=== PATIENT | male | born 1950 | race Caucasian/White ===

== ENCOUNTER 2021-10-23 21:00 | Inpatient (IN) | payer MEDICARE, OTHER ==
[~2021-10-23] VITALS: Ht 167.6 cm; Wt 94.2 kg
[2021-10-23] MEDS ORDERED: ALBUTEROL SULFATE 5 MG/ML 20 ML NEB SOLN [BULK] NEB ONE ×2 (21:15)
[2021-10-23] MEDS ORDERED: IPRATROPIUM BROMIDE 0.5 MG/2.5 ML NEB SOLUTION NEB ONE (21:15)
[2021-10-23 21:27] LABS: COVID AG,FIA SOURCE NASAL SWAB
[2021-10-23 21:35] LABS: BASOPHILS % (AUTO) 0.3 % (0.0-2.0); EOSINOPHILS % (AUTO) 0.5 % (1.0-6.0); HEMATOCRIT 46.5 % (41-53); HEMOGLOBIN 14.3 g/dL (13.5-17.5); LYMPHOCYTES # (AUTO) 0.9 K/uL (1.0-4.8); LYMPHOCYTES % (AUTO) 9.3 % (22.0-44.0); MEAN CORPUSCULAR HGB CONC 30.7 G/dL (31.0-37.0); MEAN CORPUSCULAR VOLUME 82 fL (80-100); MONOCYTES # (AUTO) 0.7 K/uL (0.1-1.0); MONOCYTES % (AUTO) 7.2 % (2.0-9.0); NEUTROPHILS # (AUTO) 8.2 K/uL (1.8-7.7); NEUTROPHILS % (AUTO) 82.7 % (40.0-70.0); PLATELET COUNT (AUTO) 223 K/uL (150-450); RED CELL DISTRIBUTION WIDTH 17.6 % (11.5-14.5)
[2021-10-23 21:47] LABS: INR 1.1 (0.9-1.1); PROTHROMBIN TIME 11.9 SEC (9.4-11.6)
[2021-10-23] MEDS ORDERED: ETOMIDATE 2 MG/ML 10 ML VIAL ONE (21:49)
[2021-10-23 21:50] LABS: ALBUMIN 3.9 g/dL (3.4-5.0); BILIRUBIN,TOTAL 1.3 mg/dL (0.1-1.0); CALCIUM, TOTAL 9.3 mg/dL (8.8-10.5); CREATININE 1.21 mg/dL (0.60-1.30); POTASSIUM 4.4 mmol/L (3.5-5.1)
[2021-10-23] MEDS ORDERED: ROCURONIUM BROMIDE 10 MG/ML 5 ML VIAL ONE (21:50)
[2021-10-23] MEDS ORDERED: ROCURONIUM BROMIDE 10 MG/ML 5 ML VIAL IVP ONE (22:00)
[2021-10-23] MEDS ORDERED: ETOMIDATE 2 MG/ML 10 ML VIAL IVP ONE (22:00)
[2021-10-23] MEDS ORDERED: FUROSEMIDE 40 MG/4 ML VIAL IVP ONE (22:15)
[2021-10-23 22:20] LABS: ABG BASE EXCESS 11.1 mmol/L (-2.0-3.0); ABG CARBOXYHEMOGLOBIN 1.4 % (0.0-1.5); ABG HCO3 31.8 mmol/L (22.0-26.0); ABG METHEMOGLOBIN 0.2 % (0.0-1.5); ABG OXYGEN CONTENT 17.5 mL/dL (15.0-23.0); ABG OXYGEN SATURATION 89.9 % (95.0-98.0); ABG OXYHEMOGLOBIN 88.5 % (94.0-100.0); ABG PH 7.332 (7.35-7.450); ABG TOTAL HEMOGLOBIN 14.1 G/dL (12.0-18.0); PO2, ARTERIAL BG 53.5 mmHg (75.0-83.0); SOURCE, BLOOD GAS ARTERIAL; TEMPERATURE, FAHRENHEIT, BG 96.8 FAHREN (96.0-98.6)
[2021-10-23 22:21] LABS: ABG PCO2 71 mmHg (35-45); O2 DEVICE,BLOOD GAS VENTILATOR (ROOM AIR); SITE, BLOOD GAS RT RADIAL; VT, ABG 450 ml
[2021-10-23 22:22] LABS: PEEP,BG 5 cm H2O
[2021-10-23 22:37] LABS: APPEARANCE,URINE CLEAR (CLEAR); BILIRUBIN,URINE NEGATIVE (NEGATIVE); GLUCOSE, URINE (UA) TRACE mg/dL (NEGATIVE); KETONES,URINE NEGATIVE (NEGATIVE); LEUKOCYTE ESTERASE ,URINE NEGATIVE (NEGATIVE); NITRATE,URINE NEGATIVE (NEGATIVE); OCCULT BLOOD,URINE MODERATE (NEGATIVE); PROTEIN,URINE 300-600,SEE CONFIRM mg/dL (NEGATIVE); SPECIFIC GRAVITIY, URINE 1.027 (1.003-1.030)
[2021-10-23] MEDS: FentaNYL CIT 1000MCG/0.9% NACL 100 ML IV PRN (22:43)
[2021-10-23 22:47] LABS: BACTERIA,URINE Rare /HPF (None Seen); RBC,URINE 26-50 /HPF (0-2); SQUAMOUS EPITHELIAL CELL,UR Rare /LPF (None Seen); WBC,URINE 0-2 /HPF (0-5)
[2021-10-23 22:48] LABS: SULFOSALICYLIC ACID,URINE 4+ (Negative)
[2021-10-23] MEDS: PROPOFOL 1000 MG/ISO-OSM 100 ML IV PRN (23:35)
[2021-10-23] MEDS ORDERED: APIX5TAB PO (23:48)
[2021-10-23] MEDS ORDERED: ATOR40TA28 PO (23:48)
[2021-10-23] MEDS ORDERED: LOSA-381 PO (23:48)
[2021-10-24 00:31] LABS: ABG BASE EXCESS 15.7 mmol/L (-2.0-3.0); ABG CARBOXYHEMOGLOBIN 1.1 % (0.0-1.5); ABG OXYGEN CONTENT 16.7 mL/dL (15.0-23.0); ABG OXYGEN SATURATION 87.3 % (95.0-98.0); ABG OXYHEMOGLOBIN 86.3 % (94.0-100.0); ABG PCO2 53 mmHg (35-45); ABG PH 7.484 (7.35-7.450); ABG TOTAL HEMOGLOBIN 13.8 G/dL (12.0-18.0); PO2, ARTERIAL BG 46.1 mmHg (75.0-83.0); SOURCE, BLOOD GAS ARTERIAL; TEMPERATURE, FAHRENHEIT, BG 98.6 FAHREN (96.0-98.6)
[2021-10-24 00:32] LABS: O2 DEVICE,BLOOD GAS VENTILATOR (ROOM AIR); PEEP,BG 5 cm H2O; SITE, BLOOD GAS RT RADIAL; VT, ABG 450 ml
[2021-10-24] MEDS ORDERED: ACETAMINOPHEN 650 MG RECTAL SUPPOSITORY PR ONE (01:15)
[2021-10-24] MEDS ORDERED: PNEUMOCOCCAL VACCINE POLYVALENT 0.5 ML VIAL [PPSV23] IM. ONE (03:15)
[2021-10-24 04:00] VITALS: BP 113/72
[2021-10-24] MEDS: FentaNYL CIT 1000MCG/0.9% NACL 100 ML IV PRN ×3 (05:00→18:28)
[2021-10-24 05:35] LABS: BASOPHILS % (AUTO) 0.7 % (0.0-2.0); EOSINOPHILS % (AUTO) 0.3 % (1.0-6.0); HEMATOCRIT 40.4 % (41-53); HEMOGLOBIN 12.7 g/dL (13.5-17.5); LYMPHOCYTES # (AUTO) 1.6 K/uL (1.0-4.8); LYMPHOCYTES % (AUTO) 19.7 % (22.0-44.0); MEAN CORPUSCULAR HGB CONC 31.4 G/dL (31.0-37.0); MEAN CORPUSCULAR VOLUME 80 fL (80-100); MONOCYTES % (AUTO) 12.6 % (2.0-9.0); NEUTROPHILS # (AUTO) 5.5 K/uL (1.8-7.7); NEUTROPHILS % (AUTO) 66.7 % (40.0-70.0); PLATELET COUNT (AUTO) 162 K/uL (150-450); RED BLOOD CELL COUNT(AUTO) 5.07 MIL/uL (4.50-5.90)
[2021-10-24 05:45] LABS: CALCIUM, TOTAL 8.9 mg/dL (8.8-10.5); CREATININE 1.4 mg/dL (0.60-1.30); POTASSIUM 3.5 mmol/L (3.5-5.1)
[2021-10-24 08:00] VITALS: BP 115/78
[2021-10-24] MEDS: ETHYL ALCOHOL 62% ANTISEPTIC NASAL SANITIZER 0.6 ML AMPUL NASAL SCH ×2 (08:35→19:59)
[2021-10-24] MEDS ORDERED: ETHYL ALCOHOL 62% ANTISEPTIC NASAL SANITIZER 0.6 ML AMPUL NASAL SCH (09:00)
[2021-10-24 09:23] LABS: ABG BASE EXCESS 11.7 mmol/L (-2.0-3.0); ABG CARBOXYHEMOGLOBIN 0.9 % (0.0-1.5); ABG HCO3 34.9 mmol/L (22.0-26.0); ABG METHEMOGLOBIN 0.3 % (0.0-1.5); ABG OXYGEN CONTENT 16.9 mL/dL (15.0-23.0); ABG OXYGEN SATURATION 90.8 % (95.0-98.0); ABG OXYHEMOGLOBIN 89.7 % (94.0-100.0); ABG PCO2 36 mmHg (35-45); ABG TOTAL HEMOGLOBIN 13.4 G/dL (12.0-18.0); PO2, ARTERIAL BG 51.8 mmHg (75.0-83.0); SOURCE, BLOOD GAS ARTERIAL; TEMPERATURE, FAHRENHEIT, BG 100.2 FAHREN (96.0-98.6)
[2021-10-24 09:25] LABS: ABG PH 7.591 (7.35-7.450); SITE, BLOOD GAS RT RADIAL
[2021-10-24 09:26] LABS: O2 DEVICE,BLOOD GAS VENTILATOR (ROOM AIR); PEEP,BG 8 cm H2O; VT, ABG 450 ml
[2021-10-24] MEDS: ALBUTEROL SULFATE 2.5 MG/0.5 ML NEB SOLUTION NEB SCH ×4 (10:10→22:38)
[2021-10-24] MEDS: IPRATROPIUM BROMIDE 0.5 MG/2.5 ML NEB SOLUTION NEB SCH ×4 (10:10→22:38)
[2021-10-24] MEDS ORDERED: DEXMEDETOMIDINE HCL 400 MCG in SODIUM CHLORIDE 0.9% 96 ML IV PRN (11:15)
[2021-10-24 12:00] VITALS: BP 84/51
[2021-10-24] MEDS: ACETAMINOPHEN 325 MG TABLET PO PRN (12:13)
[2021-10-24] MEDS ORDERED: NOREPINEPHRINE 8 MG/D5%-WATER 250 ML IV ONE (12:40)
[2021-10-24] MEDS ORDERED: NOREPINEPHRINE 8 MG/D5%-WATER 250 ML IV PRN ×2 (13:30→13:45)
[2021-10-24] MEDS: PROPOFOL 1000 MG/ISO-OSM 100 ML IV PRN (13:37)
[2021-10-24] MEDS ORDERED: VANCOMYCIN HCL 1.5 GM in DEXTROSE 5%-WATER 250 ML IV ONE (14:00)
[2021-10-24] MEDS ORDERED: SODIUM CHLORIDE 0.9% 250 ML IV ONE (15:21)
[2021-10-24] MEDS: PIPERACILLIN/TAZO 3.375 GM/D5W 50 ML IV SCH ×2 (15:27→20:00)
[2021-10-24 16:00] VITALS: BP 100/50
[2021-10-24] MEDS ORDERED: APIXABAN 5 MG TABLET PO ONE (18:00)
[2021-10-24 20:00] VITALS: BP 107/65
[2021-10-24] MEDS ORDERED: DIGOXIN 250 MCG/ML 2 ML AMP IVP ONE (20:30)
[2021-10-24] MEDS: BUDESONIDE 0.25 MG/2 ML NEB SOLUTION NEB SCH (20:51)
[2021-10-25] VITALS: BP 110/66
[2021-10-25] MEDS: PROPOFOL 1000 MG/ISO-OSM 100 ML IV PRN ×3 (01:46→22:31)
[2021-10-25] MEDS: IPRATROPIUM BROMIDE 0.5 MG/2.5 ML NEB SOLUTION NEB SCH ×6 (03:12→22:38)
[2021-10-25] MEDS: PIPERACILLIN/TAZO 3.375 GM/D5W 50 ML IV SCH ×4 (03:24→20:12)
[2021-10-25 04:00] VITALS: BP 127/63
[2021-10-25 05:15] LABS: CALCIUM, TOTAL 8.2 mg/dL (8.8-10.5); CREATININE 1.72 mg/dL (0.60-1.30); POTASSIUM 3.3 mmol/L (3.5-5.1)
[2021-10-25] MEDS: ACETAMINOPHEN 325 MG TABLET PO PRN (06:12)
[2021-10-25] MEDS: ALBUTEROL SULFATE 2.5 MG/0.5 ML NEB SOLUTION NEB SCH (07:00)
[2021-10-25 08:00] VITALS: BP 104/65
[2021-10-25] MEDS ORDERED: VANCOMYCIN HCL 1 GM/D5% WATER 200 ML IV SCH (08:00)
[2021-10-25] MEDS ORDERED: VANCOMYCIN HCL 1.5 GM in DEXTROSE 5%-WATER 250 ML IV SCH (08:00)
[2021-10-25] MEDS ORDERED: POTASSIUM CHLORIDE 10% 40 MEQ/30 ML LIQUID UDCUP NG ONE (08:45)
[2021-10-25] MEDS ORDERED: DIGOXIN 250 MCG/ML 2 ML AMP IVP ONE (09:00)
[2021-10-25] MEDS: FUROSEMIDE 40 MG/4 ML VIAL IVP SCH (09:02)
[2021-10-25 09:03] LABS: THYROID STIMULATING HORMONE 3.4 uIU/mL (0.36-3.74)
[2021-10-25] MEDS: ETHYL ALCOHOL 62% ANTISEPTIC NASAL SANITIZER 0.6 ML AMPUL NASAL SCH ×2 (09:03→20:12)
[2021-10-25] MEDS: APIXABAN 5 MG TABLET NG SCH ×2 (09:17→20:12)
[2021-10-25] MEDS: DILTIAZEM HCL 30 MG TABLET NG SCH ×4 (09:17→23:52)
[2021-10-25] MEDS: BUDESONIDE 0.25 MG/2 ML NEB SOLUTION NEB SCH ×2 (09:39→19:35)
[2021-10-25 12:00] VITALS: BP 116/60
[2021-10-25] MEDS: LEVALBUTEROL HCL 0.63 MG/3 ML NEB SOLUTION NEB SCH ×4 (12:48→22:38)
[2021-10-25] MEDS: FentaNYL CIT 1000MCG/0.9% NACL 100 ML IV PRN (14:01)
[2021-10-25 16:00] VITALS: BP 118/60
[2021-10-25 20:00] VITALS: BP 104/85
[2021-10-26] VITALS: BP 119/74
[2021-10-26] MEDS: PIPERACILLIN/TAZO 3.375 GM/D5W 50 ML IV SCH ×4 (02:08→21:12)
[2021-10-26] MEDS: LEVALBUTEROL HCL 0.63 MG/3 ML NEB SOLUTION NEB SCH ×6 (03:02→22:23)
[2021-10-26] MEDS: IPRATROPIUM BROMIDE 0.5 MG/2.5 ML NEB SOLUTION NEB SCH ×6 (03:02→22:23)
[2021-10-26 04:00] VITALS: BP 126/67
[2021-10-26] MEDS: DILTIAZEM HCL 30 MG TABLET NG SCH ×4 (05:48→23:33)
[2021-10-26 06:21] LABS: GLUCOSE,POINT OF CARE 94 MG/DL (70-110)
[2021-10-26] MEDS: PROPOFOL 1000 MG/ISO-OSM 100 ML IV PRN ×2 (06:22→08:18)
[2021-10-26 06:30] LABS: CALCIUM, TOTAL 8.1 mg/dL (8.8-10.5); CREATININE 1.55 mg/dL (0.60-1.30); DIGOXIN 0.4 ng/mL (0.90-2.00); POTASSIUM 3.1 mmol/L (3.5-5.1)
[2021-10-26 08:00] VITALS: BP 97/66
[2021-10-26] MEDS: ETHYL ALCOHOL 62% ANTISEPTIC NASAL SANITIZER 0.6 ML AMPUL NASAL SCH ×2 (08:17→21:13)
[2021-10-26] MEDS: BUDESONIDE 0.25 MG/2 ML NEB SOLUTION NEB SCH ×2 (08:17→19:04)
[2021-10-26] MEDS: APIXABAN 5 MG TABLET NG SCH ×3 (08:17→21:21)
[2021-10-26] MEDS: FUROSEMIDE 40 MG/4 ML VIAL IVP SCH (08:17)
[2021-10-26] MEDS: VANCOMYCIN HCL 1.25 GM in DEXTROSE 5%-WATER 250 ML IV SCH (08:18)
[2021-10-26] MEDS ORDERED: SODIUM CHLORIDE 0.9% 250 ML IV ONE (09:25)
[2021-10-26] MEDS: POTASSIUM CHL 10 MEQ/WATER 50 ML IV SCH ×4 (10:55→14:15)
[2021-10-26 12:00] VITALS: BP 100/52
[2021-10-26 12:41] LABS: GLUCOSE,POINT OF CARE 124 MG/DL (70-110)
[2021-10-26] MEDS: FentaNYL CIT 1000MCG/0.9% NACL 100 ML IV PRN (13:03)
[2021-10-26 16:00] VITALS: BP 117/85
[2021-10-26 17:08] LABS: ABG A-A DIFF O2 173.2 mmHg (10-20.0); ABG BASE EXCESS 10.3 mmol/L (-2.0-3.0); ABG CARBOXYHEMOGLOBIN 1.1 % (0.0-1.5); ABG HCO3 31.7 mmol/L (22.0-26.0); ABG METHEMOGLOBIN 0.3 % (0.0-1.5); ABG OXYGEN CONTENT 18.3 mL/dL (15.0-23.0); ABG OXYGEN SATURATION 93.9 % (95.0-98.0); ABG OXYHEMOGLOBIN 92.6 % (94.0-100.0); ABG PCO2 63 mmHg (35-45); ABG PH 7.369 (7.35-7.450); O2 DEVICE,BLOOD GAS VENTILATOR (ROOM AIR); PO2, ARTERIAL BG 76.1 mmHg (75.0-83.0); SITE, BLOOD GAS LFT RADIAL; SOURCE, BLOOD GAS ARTERIAL; TEMPERATURE, FAHRENHEIT, BG 98.5 FAHREN (96.0-98.6); VENT MODE, BG Press. Support Vent. (ROOM AIR)
[2021-10-26 17:09] LABS: PEEP,BG 5 cm H2O; PRESSURE SUPPORT, BG 5 cm H2O; SPONTANEOUS VT, BG 554 ml
[2021-10-26 19:11] LABS: GLUCOSE,POINT OF CARE 119 MG/DL (70-110)
[2021-10-26 20:00] VITALS: BP 110/68
[2021-10-27] VITALS: BP 106/64
[2021-10-27] MEDS: LEVALBUTEROL HCL 0.63 MG/3 ML NEB SOLUTION NEB SCH ×6 (02:46→22:16)
[2021-10-27] MEDS: IPRATROPIUM BROMIDE 0.5 MG/2.5 ML NEB SOLUTION NEB SCH ×6 (02:46→22:16)
[2021-10-27 04:00] VITALS: BP 98/55
[2021-10-27] MEDS: PIPERACILLIN/TAZO 3.375 GM/D5W 50 ML IV SCH ×4 (04:17→19:29)
[2021-10-27 05:32] LABS: BASOPHILS % (AUTO) 0.4 % (0.0-2.0); EOSINOPHILS % (AUTO) 1.7 % (1.0-6.0); HEMATOCRIT 39.6 % (41-53); HEMOGLOBIN 12.6 g/dL (13.5-17.5); LYMPHOCYTES % (AUTO) 14.1 % (22.0-44.0); MEAN CORPUSCULAR HGB CONC 31.8 G/dL (31.0-37.0); MEAN CORPUSCULAR VOLUME 78 fL (80-100); MONOCYTES # (AUTO) 0.7 K/uL (0.1-1.0); NEUTROPHILS # (AUTO) 5.5 K/uL (1.8-7.7); NEUTROPHILS % (AUTO) 74.8 % (40.0-70.0); PLATELET COUNT (AUTO) 167 K/uL (150-450); RED BLOOD CELL COUNT(AUTO) 5.05 MIL/uL (4.50-5.90); RED CELL DISTRIBUTION WIDTH 16.6 % (11.5-14.5)
[2021-10-27] MEDS: DILTIAZEM HCL 30 MG TABLET NG SCH ×4 (05:40→23:17)
[2021-10-27 05:46] LABS: CALCIUM, TOTAL 8.2 mg/dL (8.8-10.5); CREATININE 1.45 mg/dL (0.60-1.30); POTASSIUM 3.7 mmol/L (3.5-5.1); VANCOMYCIN,RANDOM 11.9 mcg/mL (25.0-50.0)
[2021-10-27 08:00] VITALS: BP 129/74
[2021-10-27] MEDS: VANCOMYCIN HCL 1.25 GM in DEXTROSE 5%-WATER 250 ML IV SCH (08:11)
[2021-10-27] MEDS: APIXABAN 5 MG TABLET NG SCH ×2 (08:11→20:35)
[2021-10-27] MEDS: ETHYL ALCOHOL 62% ANTISEPTIC NASAL SANITIZER 0.6 ML AMPUL NASAL SCH ×2 (08:11→20:35)
[2021-10-27] MEDS: FUROSEMIDE 40 MG/4 ML VIAL IVP SCH (08:11)
[2021-10-27] MEDS: BUDESONIDE 0.25 MG/2 ML NEB SOLUTION NEB SCH ×2 (08:16→21:00)
[2021-10-27 12:00] VITALS: BP 103/79
[2021-10-27 16:00] VITALS: BP 149/82
[2021-10-27] MEDS ORDERED: SODIUM CHLORIDE 0.9% 250 ML IV ONE (19:25)
[2021-10-27] MEDS: VANCOMYCIN HCL 750 MG in DEXTROSE 5%-WATER 250 ML IV SCH (19:58)
[2021-10-27 20:00] VITALS: BP 133/90
[2021-10-28] VITALS: BP 127/83
[2021-10-28] MEDS: PIPERACILLIN/TAZO 3.375 GM/D5W 50 ML IV SCH ×4 (03:04→21:55)
[2021-10-28 04:00] VITALS: BP 137/86
[2021-10-28] MEDS: IPRATROPIUM BROMIDE 0.5 MG/2.5 ML NEB SOLUTION NEB SCH ×6 (04:05→23:06)
[2021-10-28] MEDS: LEVALBUTEROL HCL 0.63 MG/3 ML NEB SOLUTION NEB SCH ×6 (04:06→23:07)
[2021-10-28 05:31] LABS: BASOPHILS % (AUTO) 0.5 % (0.0-2.0); EOSINOPHILS % (AUTO) 1.4 % (1.0-6.0); HEMATOCRIT 42.5 % (41-53); HEMOGLOBIN 13.2 g/dL (13.5-17.5); LYMPHOCYTES # (AUTO) 1.3 K/uL (1.0-4.8); LYMPHOCYTES % (AUTO) 14.2 % (22.0-44.0); MEAN CORPUSCULAR HEMOGLOBIN 24.5 pg (26.0-34.0); MEAN CORPUSCULAR HGB CONC 30.9 G/dL (31.0-37.0); MEAN CORPUSCULAR VOLUME 79 fL (80-100); MONOCYTES # (AUTO) 1.1 K/uL (0.1-1.0); MONOCYTES % (AUTO) 12.8 % (2.0-9.0); NEUTROPHILS # (AUTO) 6.3 K/uL (1.8-7.7); NEUTROPHILS % (AUTO) 71.1 % (40.0-70.0); PLATELET COUNT (AUTO) 146 K/uL (150-450); RED BLOOD CELL COUNT(AUTO) 5.37 MIL/uL (4.50-5.90); RED CELL DISTRIBUTION WIDTH 16.6 % (11.5-14.5)
[2021-10-28 05:38] LABS: CALCIUM, TOTAL 8.6 mg/dL (8.8-10.5); CREATININE 1.35 mg/dL (0.60-1.30); POTASSIUM 3.4 mmol/L (3.5-5.1)
[2021-10-28] MEDS ORDERED: DIGOXIN 250 MCG/ML 2 ML AMP IVP ONE (07:15)
[2021-10-28 08:00] VITALS: BP 128/62
[2021-10-28] MEDS: BUDESONIDE 0.25 MG/2 ML NEB SOLUTION NEB SCH ×2 (08:39→20:58)
[2021-10-28] MEDS: FUROSEMIDE 40 MG/4 ML VIAL IVP SCH (08:44)
[2021-10-28] MEDS: DILTIAZEM HCL CD 120 MG ER CAPSULE PO SCH (08:44)
[2021-10-28] MEDS: APIXABAN 5 MG TABLET NG SCH ×2 (08:44→20:37)
[2021-10-28] MEDS: ETHYL ALCOHOL 62% ANTISEPTIC NASAL SANITIZER 0.6 ML AMPUL NASAL SCH ×2 (08:44→20:38)
[2021-10-28] MEDS: VANCOMYCIN HCL 750 MG in DEXTROSE 5%-WATER 250 ML IV SCH ×2 (09:33→20:40)
[2021-10-28 12:00] VITALS: BP 129/85
[2021-10-28 12:17] LABS: C.DIFF GDH ANTIGEN, Stool Negative (Negative)
[2021-10-28 12:18] LABS: C.DIFF TOXINS A&B, Stool Negative (Negative)
[2021-10-28] MEDS ORDERED: SODIUM CHLORIDE 0.9% 250 ML IV ONE (13:41)
[2021-10-28 16:32] VITALS: BP 132/82
[2021-10-28] MEDS ORDERED: AMIODARONE HCL 150 MG in DEXTROSE 5%-WATER 97 ML IV ONE (18:00)
[2021-10-28] MEDS ORDERED: AMIODARONE HCL 360 MG in DEXTROSE 5%-WATER 242.8 ML IV ONE (18:00)
[2021-10-28 19:18] VITALS: BP 128/64
[2021-10-29] VITALS (7 sets, daily range): BP systolic 136–157; BP diastolic 73–109
[2021-10-29] MEDS ORDERED: AMIODARONE HCL 540 MG in DEXTROSE 5%-WATER 239.2 ML IV ONE ×2
[2021-10-29] MEDS: PIPERACILLIN/TAZO 3.375 GM/D5W 50 ML IV SCH ×4 (03:26→22:19)
[2021-10-29] MEDS: IPRATROPIUM BROMIDE 0.5 MG/2.5 ML NEB SOLUTION NEB SCH ×6 (03:44→23:20)
[2021-10-29] MEDS: LEVALBUTEROL HCL 0.63 MG/3 ML NEB SOLUTION NEB SCH ×6 (03:44→23:20)
[2021-10-29 06:55] LABS: CALCIUM, TOTAL 9.1 mg/dL (8.8-10.5); CREATININE 1.27 mg/dL (0.60-1.30); POTASSIUM 3.2 mmol/L (3.5-5.1); VANCOMYCIN,RANDOM 19.9 mcg/mL (25.0-50.0)
[2021-10-29] MEDS: BUDESONIDE 0.25 MG/2 ML NEB SOLUTION NEB SCH ×2 (08:05→20:02)
[2021-10-29] MEDS: DILTIAZEM HCL CD 120 MG ER CAPSULE PO SCH (08:14)
[2021-10-29] MEDS: ETHYL ALCOHOL 62% ANTISEPTIC NASAL SANITIZER 0.6 ML AMPUL NASAL SCH ×2 (08:14→22:19)
[2021-10-29] MEDS: FUROSEMIDE 40 MG/4 ML VIAL IVP SCH (08:14)
[2021-10-29] MEDS: APIXABAN 5 MG TABLET NG SCH ×2 (08:14→22:19)
[2021-10-29] MEDS ORDERED: POTASSIUM CHL 10 MEQ/WATER 50 ML IV PRN (09:00)
[2021-10-29] MEDS: POTASSIUM CHLORIDE 20 MEQ ER TABLET PO PRN (09:07)
[2021-10-29] MEDS: VANCOMYCIN HCL 750 MG in DEXTROSE 5%-WATER 250 ML IV SCH ×2 (09:27→22:19)
[2021-10-29] MEDS: DIGOXIN 250 MCG/ML 2 ML AMP IVP SCH ×3 (12:17→23:53)
[2021-10-29] MEDS ORDERED: SODIUM CHLORIDE 0.9% 500 ML IV ONE (16:23)
[2021-10-29] MEDS ORDERED: AMIODARONE HCL 750 MG in DEXTROSE 5%-WATER 485 ML IV SCH (18:00)
[2021-10-30] MEDS: PIPERACILLIN/TAZO 3.375 GM/D5W 50 ML IV SCH ×4 (02:23→21:09)
[2021-10-30] MEDS: IPRATROPIUM BROMIDE 0.5 MG/2.5 ML NEB SOLUTION NEB SCH ×6 (03:00→23:32)
[2021-10-30] MEDS: LEVALBUTEROL HCL 0.63 MG/3 ML NEB SOLUTION NEB SCH ×6 (03:00→23:32)
[2021-10-30 04:21] VITALS: BP 126/93
[2021-10-30] MEDS: DIGOXIN 250 MCG/ML 2 ML AMP IVP SCH (05:28)
[2021-10-30 07:13] LABS: CALCIUM, TOTAL 9.2 mg/dL (8.8-10.5); CREATININE 1.36 mg/dL (0.60-1.30); POTASSIUM 3.4 mmol/L (3.5-5.1)
[2021-10-30 07:26] VITALS: BP 128/88
[2021-10-30] MEDS: ETHYL ALCOHOL 62% ANTISEPTIC NASAL SANITIZER 0.6 ML AMPUL NASAL SCH ×2 (08:31→21:09)
[2021-10-30] MEDS: DILTIAZEM HCL CD 120 MG ER CAPSULE PO SCH (08:31)
[2021-10-30] MEDS: APIXABAN 5 MG TABLET NG SCH ×2 (08:32→21:09)
[2021-10-30] MEDS: AMIODARONE HCL 200 MG TABLET PO SCH ×2 (08:32→21:09)
[2021-10-30] MEDS: BUDESONIDE 0.25 MG/2 ML NEB SOLUTION NEB SCH ×2 (10:26→20:16)
[2021-10-30 11:20] VITALS: BP 124/76
[2021-10-30] MEDS: VANCOMYCIN HCL 750 MG in DEXTROSE 5%-WATER 250 ML IV SCH ×2 (13:08→21:47)
[2021-10-30 15:59] VITALS: BP 129/82
[2021-10-30 19:37] VITALS: BP 151/93
[2021-10-31] VITALS (7 sets, daily range): BP systolic 127–152; BP diastolic 74–104
[2021-10-31] MEDS: PIPERACILLIN/TAZO 3.375 GM/D5W 50 ML IV SCH ×4 (03:53→21:09)
[2021-10-31] MEDS: IPRATROPIUM BROMIDE 0.5 MG/2.5 ML NEB SOLUTION NEB SCH ×6 (04:28→23:07)
[2021-10-31] MEDS: LEVALBUTEROL HCL 0.63 MG/3 ML NEB SOLUTION NEB SCH ×6 (04:28→23:07)
[2021-10-31 06:54] LABS: CALCIUM, TOTAL 8.8 mg/dL (8.8-10.5); CREATININE 1.31 mg/dL (0.60-1.30); POTASSIUM 3.3 mmol/L (3.5-5.1); VANCOMYCIN,RANDOM 18.1 mcg/mL (25.0-50.0)
[2021-10-31] MEDS ORDERED: POTASSIUM CHLORIDE 20 MEQ ER TABLET PO ONE (08:15)
[2021-10-31] MEDS: BUDESONIDE 0.25 MG/2 ML NEB SOLUTION NEB SCH ×2 (08:23→20:00)
[2021-10-31] MEDS: APIXABAN 5 MG TABLET NG SCH ×2 (08:56→21:09)
[2021-10-31] MEDS: FUROSEMIDE 40 MG TABLET PO SCH (08:56)
[2021-10-31] MEDS: AMIODARONE HCL 200 MG TABLET PO SCH ×2 (08:56→21:08)
[2021-10-31] MEDS: ETHYL ALCOHOL 62% ANTISEPTIC NASAL SANITIZER 0.6 ML AMPUL NASAL SCH ×2 (08:56→21:08)
[2021-10-31] MEDS: DILTIAZEM HCL CD 120 MG ER CAPSULE PO SCH (08:57)
[2021-10-31] MEDS: VANCOMYCIN HCL 750 MG in DEXTROSE 5%-WATER 250 ML IV SCH ×2 (08:58→22:03)
[2021-11-01] MEDS: IPRATROPIUM BROMIDE 0.5 MG/2.5 ML NEB SOLUTION NEB SCH ×6 (03:37→23:00)
[2021-11-01] MEDS: LEVALBUTEROL HCL 0.63 MG/3 ML NEB SOLUTION NEB SCH ×6 (03:37→23:00)
[2021-11-01] MEDS: PIPERACILLIN/TAZO 3.375 GM/D5W 50 ML IV SCH ×2 (03:46→09:51)
[2021-11-01 04:49] VITALS: BP 147/91
[2021-11-01 06:32] LABS: CALCIUM, TOTAL 8.9 mg/dL (8.8-10.5); CREATININE 1.26 mg/dL (0.60-1.30); POTASSIUM 3.1 mmol/L (3.5-5.1)
[2021-11-01 07:31] VITALS: BP 161/103
[2021-11-01] MEDS: VANCOMYCIN HCL 750 MG in DEXTROSE 5%-WATER 250 ML IV SCH (07:57)
[2021-11-01] MEDS: ETHYL ALCOHOL 62% ANTISEPTIC NASAL SANITIZER 0.6 ML AMPUL NASAL SCH ×2 (07:57→20:36)
[2021-11-01] MEDS: FUROSEMIDE 40 MG TABLET PO SCH (07:59)
[2021-11-01] MEDS: APIXABAN 5 MG TABLET NG SCH ×2 (07:59→20:36)
[2021-11-01] MEDS: AMIODARONE HCL 200 MG TABLET PO SCH ×2 (07:59→20:36)
[2021-11-01] MEDS: BUDESONIDE 0.25 MG/2 ML NEB SOLUTION NEB SCH ×2 (08:05→21:00)
[2021-11-01] MEDS: DILTIAZEM HCL CD 120 MG ER CAPSULE PO SCH (10:00)
[2021-11-01 10:44] VITALS: BP 158/109
[2021-11-01] MEDS ORDERED: DEXTROSE 5%-WATER 500 ML IV ONE (14:30)
[2021-11-01 15:20] VITALS: BP 147/98
[2021-11-01 20:08] VITALS: BP 149/103
[2021-11-02] VITALS (7 sets, daily range): BP systolic 143–166; BP diastolic 81–116
[2021-11-02] MEDS: IPRATROPIUM BROMIDE 0.5 MG/2.5 ML NEB SOLUTION NEB SCH ×6 (03:00→23:02)
[2021-11-02] MEDS: LEVALBUTEROL HCL 0.63 MG/3 ML NEB SOLUTION NEB SCH ×6 (03:00→23:02)
[2021-11-02 06:09] LABS: BASOPHILS % (AUTO) 0.8 % (0.0-2.0); HEMATOCRIT 40.5 % (41-53); HEMOGLOBIN 12.8 g/dL (13.5-17.5); LYMPHOCYTES # (AUTO) 1.5 K/uL (1.0-4.8); MEAN CORPUSCULAR HEMOGLOBIN 25.1 pg (26.0-34.0); MEAN CORPUSCULAR HGB CONC 31.6 G/dL (31.0-37.0); MEAN CORPUSCULAR VOLUME 79 fL (80-100); MONOCYTES # (AUTO) 0.6 K/uL (0.1-1.0); MONOCYTES % (AUTO) 9.4 % (2.0-9.0); NEUTROPHILS # (AUTO) 4.2 K/uL (1.8-7.7); NEUTROPHILS % (AUTO) 63.8 % (40.0-70.0); PLATELET COUNT (AUTO) 233 K/uL (150-450); RED CELL DISTRIBUTION WIDTH 16.9 % (11.5-14.5)
[2021-11-02] MEDS: HydrALAZINE HCL 20 MG/ML VIAL IVP PRN (06:31)
[2021-11-02 06:34] LABS: ANION GAP 2 mmol/L (8-16); CALCIUM, TOTAL 8.9 mg/dL (8.8-10.5); CARBON DIOXIDE 40 mmol/L (22-29); CHLORIDE 100 mmol/L (98-107); CREATININE 1.18 mg/dL (0.60-1.30); GLUCOSE,RANDOM 108 mg/dL (70-110); POTASSIUM 3.4 mmol/L (3.5-5.1); SODIUM SERUM 142 mmol/L (136-145); UREA NITROGEN, BLOOD 12 mg/dL (7-18)
[2021-11-02 07:10] LABS: GLOMERULAR FILTR. RATE CALC > 60 mL/min (>60)
[2021-11-02] MEDS: BUDESONIDE 0.25 MG/2 ML NEB SOLUTION NEB SCH ×2 (08:01→21:34)
[2021-11-02] MEDS: POTASSIUM CHLORIDE 20 MEQ ER TABLET PO PRN (08:10)
[2021-11-02] MEDS: AMIODARONE HCL 200 MG TABLET PO SCH ×2 (08:10→20:35)
[2021-11-02] MEDS: DILTIAZEM HCL CD 120 MG ER CAPSULE PO SCH (08:11)
[2021-11-02] MEDS: APIXABAN 5 MG TABLET NG SCH ×2 (08:11→20:35)
[2021-11-02] MEDS: ETHYL ALCOHOL 62% ANTISEPTIC NASAL SANITIZER 0.6 ML AMPUL NASAL SCH ×2 (08:11→20:35)
[2021-11-02] MEDS ORDERED: DILTIAZEM HCL 60 MG SR CAPSULE PO ONE (10:15)
[2021-11-03] MEDS: HydrALAZINE HCL 20 MG/ML VIAL IVP PRN (00:43)
[2021-11-03 02:30] VITALS: BP 151/90
[2021-11-03] MEDS: IPRATROPIUM BROMIDE 0.5 MG/2.5 ML NEB SOLUTION NEB SCH ×3 (03:00→11:33)
[2021-11-03] MEDS: LEVALBUTEROL HCL 0.63 MG/3 ML NEB SOLUTION NEB SCH ×3 (03:00→11:33)
[2021-11-03 04:56] VITALS: BP 152/96
[2021-11-03 07:02] LABS: ANION GAP 4 mmol/L (8-16); CALCIUM, TOTAL 9.2 mg/dL (8.8-10.5); CARBON DIOXIDE 39 mmol/L (22-29); CHLORIDE 101 mmol/L (98-107); CREATININE 1.06 mg/dL (0.60-1.30); GLUCOSE,RANDOM 109 mg/dL (70-110); POTASSIUM 3.4 mmol/L (3.5-5.1); SODIUM SERUM 144 mmol/L (136-145); UREA NITROGEN, BLOOD 12 mg/dL (7-18); VANCOMYCIN,RANDOM 4.4 mcg/mL (25.0-50.0)
[2021-11-03 07:04] LABS: GLOMERULAR FILTR. RATE CALC > 60 mL/min (>60)
[2021-11-03 07:18] VITALS: BP 152/93
[2021-11-03] MEDS: BUDESONIDE 0.25 MG/2 ML NEB SOLUTION NEB SCH (08:03)
[2021-11-03] MEDS: POTASSIUM CHLORIDE 20 MEQ ER TABLET PO PRN (08:05)
[2021-11-03] MEDS: APIXABAN 5 MG TABLET NG SCH (08:05)
[2021-11-03] MEDS: ETHYL ALCOHOL 62% ANTISEPTIC NASAL SANITIZER 0.6 ML AMPUL NASAL SCH (08:05)
[2021-11-03] MEDS: AMIODARONE HCL 200 MG TABLET PO SCH (08:06)
[2021-11-03] MEDS ORDERED: DILTIAZEM HCL CD 180 MG ER CAPSULE PO SCH (09:00)
[2021-11-03] MEDS ORDERED: LOSARTAN POTASSIUM 25 MG TABLET PO SCH (09:00)
[2021-11-03 11:13] VITALS: BP 144/90
[2021-11-03] MEDS ORDERED: AMIO200T68 PO (12:49)
[2021-11-03] MEDS ORDERED: DILT-95 PO (12:51)
== END 2021-11-03 15:05 | disposition home or self-care (01) | DRG 871 ==
LOC: EMS 21:02 → ICU 22:45 → 5S 10-28 16:15
PROVIDERS: ADMIT Hospitalist; ATTEND Hospitalist
PROC: 5A1945Z Respiratory Ventilation, 24-96 Consecutive Hours (ICD-10-PCS; principal; 2021-10-23)
PROC: 0BH17EZ Insertion of Endotracheal Airway into Trachea, Via Natural or Artificial Opening (ICD-10-PCS; 2021-10-23)
PROC: 5A09357 Assistance with Respiratory Ventilation, Less than 24 Consecutive Hours, Continuous Positive Airway Pressure (ICD-10-PCS; 2021-10-23)
PROC: 05HF33Z Insertion of Infusion Device into Left Cephalic Vein, Percutaneous Approach (ICD-10-PCS; 2021-10-24)
PROC: 5A09357 Assistance with Respiratory Ventilation, Less than 24 Consecutive Hours, Continuous Positive Airway Pressure (ICD-10-PCS; 2021-10-26)
PROC: 5A0935A Assistance with Respiratory Ventilation, Less than 24 Consecutive Hours, High Flow/Velocity Cannula (ICD-10-PCS; 2021-10-26)
PROC: 5A09357 Assistance with Respiratory Ventilation, Less than 24 Consecutive Hours, Continuous Positive Airway Pressure (ICD-10-PCS; 2021-10-27)
PROC: 5A0935A Assistance with Respiratory Ventilation, Less than 24 Consecutive Hours, High Flow/Velocity Cannula (ICD-10-PCS; 2021-10-27)
PROC: 5A09357 Assistance with Respiratory Ventilation, Less than 24 Consecutive Hours, Continuous Positive Airway Pressure (ICD-10-PCS; 2021-10-28)
PROC: 5A0935A Assistance with Respiratory Ventilation, Less than 24 Consecutive Hours, High Flow/Velocity Cannula (ICD-10-PCS; 2021-10-28)
DX: A41.9 Sepsis, unspecified organism (principal); I50.33 Acute on chronic diastolic (congestive) heart failure; J18.9 Pneumonia, unspecified organism; J96.21 Acute and chronic respiratory failure with hypoxia; J96.22 Acute and chronic respiratory failure with hypercapnia; G93.40 Encephalopathy, unspecified; N17.9 Acute kidney failure, unspecified; I13.0 Hypertensive heart and chronic kidney disease with heart failure and stage 1 through stage 4 chronic kidney disease, or unspecified chronic kidney disease; E87.3 Alkalosis; Z99.11 Dependence on respirator [ventilator] status; J91.8 Pleural effusion in other conditions classified elsewhere; Z20.822 Contact with and (suspected) exposure to COVID-19; E78.5 Hyperlipidemia, unspecified; G47.30 Sleep apnea, unspecified; I48.91 Unspecified atrial fibrillation; N18.9 Chronic kidney disease, unspecified; Z86.73 Personal history of transient ischemic attack (TIA), and cerebral infarction without residual deficits; Z99.81 Dependence on supplemental oxygen; D69.6 Thrombocytopenia, unspecified; E66.9 Obesity, unspecified; Z68.33 Body mass index [BMI] 33.0-33.9, adult; I80.8 Phlebitis and thrombophlebitis of other sites; Z79.01 Long term (current) use of anticoagulants
CPT/HCPCS: 31500; 36245; 36569; 36600; 70450; 71045; 71250; 76937; 80048; 80053; 80162; 80202; 81001; 81002; 82805; 82962; 83880; 84132; 84145; 84443; 84484; 85025; 85610; 85730; 87040; 87070; 87081; 87324; 87449; 92526; 92610; 93005; 93306; 93970; 93971; 94002; 94003; 94640; 94644; 94660; 97110; 97116; 97163; 97166; 97530; 97535; 99291; G0378; J0282; J0360; J1160; J1940; J2543; J2704; J3370; J3480; J3490; J7040; J7050; J7060; Q9967; 36415-L1; 36415-TC; J7611; J7613; Z7610